=== PATIENT | male | born 1975 | race Two or more races ===

== ENCOUNTER 2024-08-29 14:53 | Inpatient (IN) | payer OTHER ==
[~2024-08-29] VITALS: Ht 170.2 cm; Wt 62.0 kg
[2024-08-29 16:22] LABS: BASOPHILS % (AUTO) 1.4 % (0.0-2.0); HEMATOCRIT 40.6 % (41-53); HEMOGLOBIN 13.3 g/dL (13.5-17.5); LYMPHOCYTES # (AUTO) 1.4 K/uL (1.0-4.8); LYMPHOCYTES % (AUTO) 29.9 % (22.0-44.0); MEAN CORPUSCULAR HEMOGLOBIN 29.7 pg (26.0-34.0); MEAN CORPUSCULAR HGB CONC 32.7 G/dL (31.0-37.0); MEAN CORPUSCULAR VOLUME 91 fL (80-100); MONOCYTES # (AUTO) 0.3 K/uL (0.1-1.0); MONOCYTES % (AUTO) 7.1 % (2.0-9.0); NEUTROPHILS # (AUTO) 2.8 K/uL (1.8-7.7); NEUTROPHILS % (AUTO) 59.6 % (40.0-70.0); PLATELET COUNT (AUTO) 311 K/uL (150-450); RED BLOOD CELL COUNT(AUTO) 4.46 MIL/uL (4.50-5.90); WHITE BLOOD COUNT (AUTO) 4.7 K/uL (4.5-11.0)
[2024-08-29 16:33] LABS: ANION GAP 10 mmol/L (8-16); CALCIUM, TOTAL 9.6 mg/dL (8.8-10.5); CARBON DIOXIDE 30 mmol/L (22-29); CHLORIDE 104 mmol/L (98-107); CREATININE 0.89 mg/dL (0.60-1.30); GLOMERULAR FILTR. RATE CALC > 60 mL/min (>60); GLUCOSE,RANDOM 100 mg/dL (70-110); SODIUM SERUM 144 mmol/L (136-145); UREA NITROGEN, BLOOD 23 mg/dL (7-18)
[2024-08-29 16:35] LABS: ALCOHOL, BLOOD (SERUM) < 3 mg/dL (0-10)
[2024-08-29 16:46] LABS: THYROID STIMULATING HORMONE 2.64 uIU/mL (0.36-3.74)
[2024-08-29 20:09] LABS: COVID AG,FIA SOURCE NPH; SARS-COV2 (COVID) ANTIGEN,FIA Negative (Negative)
[2024-08-29] MEDS ORDERED: ONDANSETRON HCL 4 MG/2 ML VIAL IVP PRN (21:00)
[2024-08-29] MEDS: DOCUSATE SODIUM 100 MG CAPSULE PO SCH (21:00)
[2024-08-29] MEDS ORDERED: ACETAMINOPHEN 325 MG TABLET PO PRN (21:00)
[2024-08-29 21:49] VITALS: BP 112/67; PULSE 70; RESP 18; TEMP 98.1; O2SAT 97
[2024-08-29] MEDS: RINGERS SOLUTION,LACTATED 1,250 ML IV ONE (23:23)
[2024-08-29] MEDS: HEPARIN SODIUM,PORCINE 5,000 UNITS/ML VIAL SQ SCH (23:24)
[2024-08-30] MEDS: MELATONIN 3 MG TABLET PO PRN (01:47)
[2024-08-30] MEDS: RisperiDONE 0.5 MG TABLET PO SCH (02:03)
[2024-08-30 05:12] VITALS: BP 113/71; PULSE 67; RESP 18; TEMP 97.7; O2SAT 99
[2024-08-30 07:41] LABS: BASOPHILS % (AUTO) 1.1 % (0.0-2.0); EOSINOPHILS % (AUTO) 3.8 % (1.0-6.0); HEMATOCRIT 36.6 % (41-53); HEMOGLOBIN 12.4 g/dL (13.5-17.5); LYMPHOCYTES # (AUTO) 1.3 K/uL (1.0-4.8); LYMPHOCYTES % (AUTO) 36.9 % (22.0-44.0); MEAN CORPUSCULAR HEMOGLOBIN 30.4 pg (26.0-34.0); MEAN CORPUSCULAR HGB CONC 33.8 G/dL (31.0-37.0); MEAN CORPUSCULAR VOLUME 90 fL (80-100); MONOCYTES # (AUTO) 0.3 K/uL (0.1-1.0); MONOCYTES % (AUTO) 8.2 % (2.0-9.0); NEUTROPHILS # (AUTO) 1.7 K/uL (1.8-7.7); PLATELET COUNT (AUTO) 280 K/uL (150-450); RED BLOOD CELL COUNT(AUTO) 4.06 MIL/uL (4.50-5.90); WHITE BLOOD COUNT (AUTO) 3.5 K/uL (4.5-11.0)
[2024-08-30 07:47] LABS: ANION GAP 6 mmol/L (8-16); CALCIUM, TOTAL 8.6 mg/dL (8.8-10.5); CARBON DIOXIDE 29 mmol/L (22-29); CHLORIDE 104 mmol/L (98-107); CREATININE 0.85 mg/dL (0.60-1.30); GLOMERULAR FILTR. RATE CALC > 60 mL/min (>60); GLUCOSE,RANDOM 90 mg/dL (70-110); POTASSIUM 4.1 mmol/L (3.5-5.1); SODIUM SERUM 139 mmol/L (136-145); UREA NITROGEN, BLOOD 23 mg/dL (7-18)
[2024-08-30 11:19] LABS: APPEARANCE,URINE CLEAR (CLEAR); BILIRUBIN,URINE NEGATIVE (NEGATIVE); COLOR,URINE LIGHT YELLOW (YELLOW); GLUCOSE, URINE (UA) NEGATIVE (NEGATIVE); KETONES,URINE NEGATIVE (NEGATIVE); LEUKOCYTE ESTERASE ,URINE NEGATIVE (NEGATIVE); NITRATE,URINE NEGATIVE (NEGATIVE); OCCULT BLOOD,URINE NEGATIVE (NEGATIVE); PROTEIN,URINE NEGATIVE (NEGATIVE); SPECIFIC GRAVITIY, URINE 1.013 (1.003-1.030); UROBILINOGEN,URINE <=1.0 mg/dL (<=1.0)
[2024-08-30 11:26] LABS: AMPHET/METH SCREEN,URINE NEGATIVE (NEGATIVE); BARBITURATE SCREEN, URINE NEGATIVE (NEGATIVE); BENZODIAZEPINES SCREEN,URINE NEGATIVE (NEGATIVE); CANNABINOID SCREEN,URINE NEGATIVE (NEGATIVE); COCAINE SCREEN,URINE NEGATIVE (NEGATIVE); METHADONE SCREEN, URINE NEGATIVE (NEGATIVE); OPIATE SCREEN,URINE NEGATIVE (NEGATIVE); PHENCYCLIDINE SCREEN,URINE NEGATIVE (NEGATIVE)
[2024-08-30 11:28] LABS: ALCOHOL, URINE DRUG SCREEN NEGATIVE (NEGATIVE)
[2024-08-30] MEDS: RisperiDONE 1 MG TABLET PO ONE (15:15)
[2024-08-30 20:00] VITALS: BP 106/66; PULSE 91; RESP 18; TEMP 98.5; O2SAT 96
[2024-08-30] MEDS ORDERED: RisperiDONE 0.5 MG TABLET PO SCH (21:00)
[2024-08-30] MEDS: RisperiDONE 1 MG TABLET PO SCH (21:16)
[2024-08-31 05:24] VITALS: BP 104/62; PULSE 72; RESP 18; TEMP 98; O2SAT 98
[2024-08-31 08:15] VITALS: BP 109/72; PULSE 74; RESP 18; TEMP 97.9; O2SAT 100
[2024-08-31 16:43] VITALS: BP 129/80; PULSE 71; RESP 18; TEMP 98; O2SAT 98
[2024-08-31] MEDS: HALOPERIDOL 5 MG TABLET PO PRN (17:31)
[2024-08-31 19:55] VITALS: BP 118/70; PULSE 97; RESP 18; TEMP 98.8; O2SAT 97
[2024-09-01 05:05] VITALS: BP 102/68; PULSE 73; RESP 18; TEMP 97.9; O2SAT 96
[2024-09-01 08:24] VITALS: BP 104/67; PULSE 88; RESP 20; TEMP 98; O2SAT 98
[2024-09-01 20:31] VITALS: BP 105/70; PULSE 97; RESP 18; TEMP 98.4; O2SAT 97
[2024-09-01] MEDS: RisperiDONE 2 MG TABLET PO SCH (20:44)
[2024-09-02 04:42] VITALS: BP 107/72; PULSE 75; RESP 18; TEMP 97.9; O2SAT 98
[2024-09-02 08:41] VITALS: BP 107/70; PULSE 77; RESP 20; TEMP 97.6; O2SAT 96
[2024-09-02 20:05] VITALS: BP 103/61; PULSE 83; RESP 18; TEMP 98.6; O2SAT 95
[2024-09-03 04:10] VITALS: BP 104/63; PULSE 68; RESP 18; TEMP 97.9; O2SAT 95
[2024-09-03 08:32] VITALS: BP 108/68; PULSE 80; RESP 18; TEMP 98; O2SAT 100
[2024-09-03] MEDS ORDERED: RISP-32 PO (13:14)
== END 2024-09-03 18:48 | DRG 885 ==
LOC: EMS 14:53 → EDH 20:13 → 6S 21:40
PROVIDERS: ADMIT Internal Medicine; ATTEND Internal Medicine
PROC: GZ52ZZZ Individual Psychotherapy, Cognitive (ICD-10-PCS; principal; 2024-09-02)
DX: F20.0 Paranoid schizophrenia (principal); E44.0 Moderate protein-calorie malnutrition; E87.3 Alkalosis; Z20.822 Contact with and (suspected) exposure to COVID-19; R79.89 Other specified abnormal findings of blood chemistry; D64.9 Anemia, unspecified; E11.9 Type 2 diabetes mellitus without complications; Z79.899 Other long term (current) drug therapy; Z68.21 Body mass index [BMI] 21.0-21.9, adult
CPT/HCPCS: 80048; 80307; 81003; 83735; 84443; 85025; 99285; G0480; J1644; J7120